=== PATIENT | female | born 1970 | race Caucasian/White ===

== ENCOUNTER 2017-11-17 16:05 | Emergency (ER) | payer OTHER ==
[~2017-11-17] VITALS: Ht 157.5 cm; Wt 65.5 kg
[~2017-11-17 16:05] MED LIST: B-1250TA PO; CELE20TA PO; FERR1TAB36 PO; HYDR-3288 PO; IMIT100T PO; TOPI1CAP25 PO; WELL150T PO
[2017-11-17 16:09] VITALS: BP 134/96; PULSE 86; RESP 16; TEMP 98.4; O2SAT 99
[2017-11-17] MEDS ORDERED: VITA1000 PO (16:28)
[2017-11-17] MEDS ORDERED: FERR325T18 PO (16:28)
[2017-11-17] MEDS ORDERED: MULT-65 PO (16:28)
[2017-11-17] MEDS ORDERED: BUPR150CR PO (16:28)
[2017-11-17] MEDS ORDERED: FURO1TAB62 PO (16:28)
--- NOTE | 2017-11-17 16:51 | PD ---
HPI Chief Complaint: Abdominal Pain Time Seen by Provider: 16:31 Travel History International Travel<30 days: No Contact w/Intl Traveler<30days: No Traveled to known affect area: No History of Present Illness HPI 46-year-old female presents emergency department for evaluation of abdominal pain that started . 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 The patient attempted to sit down prior to being to the chair in the nurse attempted to keep the patient standing by tightening all of her muscles. At that time she felt a sharp stinging pain in the upper right lateral aspect of her abdomen. Patient reports that the pain was quick and then changed into a pressure sensation. Patient has had the pressure in the right lateral upper abdominal region since. Patient reports the pain is achy in sensation and constant, rating it at as a 6 out of 10. Patient reports pain relief when she holds her abdomen and increased pain with movement and activity. Patient reported to work today and was holding her stomach because it helps relieve the pain when coworkers referred her to the emergency department for evaluation after they felt a pulsating mass. Patient's major medical history is migraines, gastric bypass in 2007, GI bleed in 2006 from over naproxen use. Patient's daily medication is Wellbutrin, Lasix and phentermine. She denies any nausea vomiting or diarrhea associated with this pain. Patient denies any fever, chills, dysuria, hematuria, blood in her stool. PFSH Past Medical History Depression: Yes Deep Vein Thrombosis: Yes (left leg) Gastrointestinal Disorders: Yes (GI bleed repaired with stapling) Migraines: Yes Influenza Vaccination: Yes ?: Not : 1 Miscarriage: 1 Past Surgical History Abdominal Surgery: Yes (GASTRIC BYPASS) Tonsillectomy: Yes Other Surgery: Yes (left medial miniscus repair) Family History Family Myocardial Infarction: Yes (maternal ) Social History Alcohol Use: No (rarely) Tobacco Use: No Substance Use: No Allergies-Medications (Allergen,Severity, Reaction): Coded Allergies: droperidol (Unverified Allergy, Severe, 11/17/17) Reported Meds & Prescriptions Reported Meds & Active Scripts Active Robaxin (Methocarbamol) 500 Mg Tab 500 Mg PO TID Reported Multi-Vitamin Daily (Multiple Vitamin) 1 Tab Tab 1 Tab PO DAILY Vitamin D-1000 (Cholecalciferol) 1,000 Unit Tab 1,000 Units PO DAILY Lasix (Furosemide) 20 Mg Tab 10 Mg PO DAILY Ferrous Sulfate 325 Mg (65 Mg Iron) Tablet 325 Mg PO DAILY Wellbutrin SR 12 HR (Bupropion HCl) 150 Mg Tab 150 Mg PO Q12HR B-1 (Thiamine HCl) 250 Mg Tab 250 Mg PO DAILY Imitrex (Sumatriptan Succinate) 100 Mg Tab 100 Mg PO ONCE PRN If a satisfactory response has not been obtained at 2 hours, a second dose may be administered Deputy (Hydrocodone-Acetaminophen) 7.5-325 mg Tab 1 Tab PO Q4H PRN Trokendi Xr (Topiramate) 25 Mg Cap 25 Mg PO DAILY Physical Exam Narrative GENERAL: Well-nourished, well-developed 46-year-old female in no acute distress. Nontoxic appearing. SKIN: Focused skin assessment warm/dry. HEAD: Atraumatic. Normocephalic. EYES: Pupils equal and round. No scleral icterus. No injection or drainage. ENT: No nasal bleeding or discharge. Mucous membranes pink and moist. NECK: Trachea midline. No JVD. CARDIOVASCULAR: Regular rate and rhythm. No murmur appreciated. RESPIRATORY: No accessory muscle use. Clear to auscultation. Breath sounds equal bilaterally. GASTROINTESTINAL: Abdomen soft, non-tender, nondistended. Hepatic and splenic margins not palpable. Right upper quadrant pulsating mass palpated. MUSCULOSKELETAL: No obvious deformities. No clubbing. No cyanosis. No edema. NEUROLOGICAL: Awake and alert. No obvious cranial nerve deficits. Motor grossly within normal limits. Normal speech. PSYCHIATRIC: Appropriate mood and affect; insight and judgment normal. Data Data Last Documented VS Vital Signs Date Time Temp Pulse Resp B/P (MAP) Pulse Ox O2 Delivery O2 Flow Rate FiO2 11/17/17 21:07 11/17/17 19:09 98.7 73 16 100 Room Air Orders Orders Complete Blood Count With Diff (11/17/17 16:42) Comprehensive Metabolic Panel (11/17/17 16:42) Lipase (11/17/17 16:42) Prothrombin Time / Inr (Pt) (11/17/17 16:42) Act Partial Throm Time (Ptt) (11/17/17 16:42) Cta Thor Abd Aorta W Iv C W3d (12/23/17 ) Iv Access Insert/Monitor (11/17/17 16:42) Ecg Monitoring (11/17/17 16:42) Oximetry (11/17/17 16:42) Electrocardiogram (11/17/17 16:42) Iohexol 350 Inj (Omnipaque 350 Inj) (11/17/17 20:00) Ed Discharge Order (11/17/17 20:52) Labs Laboratory Tests Test 11/17/17 16:54 White Blood Count 5.0 TH/MM3 Red Blood Count 4.32 MIL/MM3 Hemoglobin 12.9 GM/DL Hematocrit 37.3 % Mean Corpuscular Volume 86.2 FL Mean Corpuscular Hemoglobin 29.9 PG Mean Corpuscular Hemoglobin Concent 34.7 % Red Cell Distribution Width 12.6 % Platelet Count 231 TH/MM3 Mean Platelet Volume 8.2 FL Neutrophils (%) (Auto) 53.3 % Lymphocytes (%) (Auto) 35.1 % Monocytes (%) (Auto) 9.5 % Eosinophils (%) (Auto) 1.4 % Basophils (%) (Auto) 0.7 % Neutrophils # (Auto) 2.7 TH/MM3 Lymphocytes # (Auto) 1.8 TH/MM3 Monocytes # (Auto) 0.5 TH/MM3 Eosinophils # (Auto) 0.1 TH/MM3 Basophils # (Auto) 0.0 TH/MM3 CBC Comment DIFF FINAL Differential Comment Prothrombin Time 10.7 SEC Prothromb Time International Ratio 1.1 RATIO Activated Partial Thromboplast Time 24.3 SEC Blood Urea Nitrogen 12 MG/DL Creatinine 0.89 MG/DL Random Glucose 90 MG/DL Total Protein 6.8 GM/DL Albumin 4.3 GM/DL Calcium Level 9.1 MG/DL Alkaline Phosphatase 45 U/L Aspartate Amino Transf (AST/SGOT) 13 U/L Alanine Aminotransferase (ALT/SGPT) 20 U/L Total Bilirubin 0.7 MG/DL Sodium Level 139 MEQ/L Potassium Level 3.5 MEQ/L Chloride Level 104 MEQ/L Carbon Dioxide Level 27.9 MEQ/L Anion Gap 7 MEQ/L Estimat Glomerular Filtration Rate 68 ML/MIN Lipase 83 U/L [facility] Medical Decision Making Medical Screen Exam Complete: Yes Emergency Medical Condition: Yes Differential Diagnosis Differential diagnoses include but are not limited to AAA, muscle strain, cholecystitis, pancreatitis, hepatic lesion, abdominal pain Narrative Course Patient was on monitor, IV obtained, blood works in the lab. CBC, CMP, lipase, PT INR ordered and pending. EKG ordered and interpreted. CTA abdomen thoracic and aorta with contrast ordered and pending. CBC shows no acute abnormality. CMP shows no acute abnormality. PT/INR shows no acute abnormality. EKG shows sinus rhythm with heart rate 76. CTA of the thoracic/aorta shows no acute findings in the abdomen and pelvis, no evidence of aneurysm, dissection or high-grade stenosis. Small gallbladder stone noted. Postsurgical findings of the stomach and oxygen will small bowel. Patient is status post gastric bypass. Based on patient's presentation, vital signs, EKG, history my suspicion for acute coronary event is exceedingly low. Pain correlated with activity with AAA excluded the pain is consistent with muscular strain. Patient will be discharged home with instructions to follow-up with her primary care return the emergency Department with any worsening condition. Patient will be given a work note for tomorrow so she can rest. Patient instructed to return the emergency Department with any worsening condition. Patient understands reasons to return to the ED prior to discharge. Last Impressions Aorta CTA 11/17/17 0000 Signed Impressions: Service Date/Time: Sunday, November 17, 2017 19:23 - CONCLUSION: 1. No acute findings in the abdomen and pelvis. No evidence of aneurysm, dissection or high-grade stenosis. 2. Small gallstone in the gallbladder. 3. Postsurgical findings in the stomach and proximal small bowel. Robi Livingston MD Diagnosis Primary Impression: Muscle strain Referrals: Primary Care Physician Patient Instructions: General Instructions, Muscle Strain (ED) Departure Forms: Tests/Procedures, Work Release Enter return to work date: Nov 20, 2017 Additional Instructions: Please return to emergency department if your symptoms return or worsen. Follow up with your primary care provider. May use heating pads to help with pain management. May take Tylenol for pain management. Med/Other Pt SpecificInfo: Prescription(s) given Scripts Methocarbamol (Robaxin) 500 Mg Tab 500 MG PO TID for Muscle Spasm, #10 TAB 0 Refills Prov: Zofia Enamorado Dary CORONA 11/17/17 Disposition: 01 DISCHARGE HOME Condition: Stable Zofia Enamorado Dary CORONA Nov 17, 2017 16:51
[2017-11-17 17:06] LABS: AUTOMATED NEUTROPHIL # 2.7 TH/MM3 (1.8-7.7); BASOPHIL % 0.7 % (0.0-2.0); EOSINOPHIL # 0.1 TH/MM3 (0-0.4); EOSINOPHIL % 1.4 % (0.0-4.0); HEMATOCRIT 37.3 % (35.0-46.0); HEMOGLOBIN 12.9 GM/DL (11.6-15.3); LYMPH % 35.1 % (9.0-44.0); LYMPHOCYTE # 1.8 TH/MM3 (1.0-4.8); MEAN CELL VOLUME 86.2 FL (80.0-100.0); MEAN CORPUSCULAR HEMOGLOBIN 29.9 PG (27.0-34.0); MEAN CORPUSCULAR HGB CONC 34.7 % (32.0-36.0); MEAN PLATELET VOLUME 8.2 FL (7.0-11.0); MONO % 9.5 % (0.0-8.0); MONOCYTE # 0.5 TH/MM3 (0-0.9); NEUT % 53.3 % (16.0-70.0); PLATELET COUNT 231 TH/MM3 (150-450); RED BLOOD COUNT 4.32 MIL/MM3 (4.00-5.30); RED CELL DISTRIBUTION WIDTH 12.6 % (11.6-17.2)
--- NOTE | 2017-11-17 17:24 | PD ---
Data Data Last Documented VS Vital Signs Date Time Temp Pulse Resp B/P (MAP) Pulse Ox O2 Delivery O2 Flow Rate FiO2 11/17/17 21:07 11/17/17 19:09 98.7 73 16 100 Room Air Orders Orders Complete Blood Count With Diff (11/17/17 16:42) Comprehensive Metabolic Panel (11/17/17 16:42) Lipase (11/17/17 16:42) Prothrombin Time / Inr (Pt) (11/17/17 16:42) Act Partial Throm Time (Ptt) (11/17/17 16:42) Cta Thor Abd Aorta W Iv C W3d (11/17/17 ) Iv Access Insert/Monitor (11/17/17 16:42) Ecg Monitoring (11/17/17 16:42) Oximetry (11/17/17 16:42) Electrocardiogram (11/17/17 16:42) Iohexol 350 Inj (Omnipaque 350 Inj) (11/17/17 20:00) Ed Discharge Order (11/17/17 20:52) Labs Laboratory Tests Test 11/17/17 16:54 White Blood Count 5.0 TH/MM3 Red Blood Count 4.32 MIL/MM3 Hemoglobin 12.9 GM/DL Hematocrit 37.3 % Mean Corpuscular Volume 86.2 FL Mean Corpuscular Hemoglobin 29.9 PG Mean Corpuscular Hemoglobin Concent 34.7 % Red Cell Distribution Width 12.6 % Platelet Count 231 TH/MM3 Mean Platelet Volume 8.2 FL Neutrophils (%) (Auto) 53.3 % Lymphocytes (%) (Auto) 35.1 % Monocytes (%) (Auto) 9.5 % Eosinophils (%) (Auto) 1.4 % Basophils (%) (Auto) 0.7 % Neutrophils # (Auto) 2.7 TH/MM3 Lymphocytes # (Auto) 1.8 TH/MM3 Monocytes # (Auto) 0.5 TH/MM3 Eosinophils # (Auto) 0.1 TH/MM3 Basophils # (Auto) 0.0 TH/MM3 CBC Comment DIFF FINAL Differential Comment Prothrombin Time 10.7 SEC Prothromb Time International Ratio 1.1 RATIO Activated Partial Thromboplast Time 24.3 SEC Blood Urea Nitrogen 12 MG/DL Creatinine 0.89 MG/DL Random Glucose 90 MG/DL Total Protein 6.8 GM/DL Albumin 4.3 GM/DL Calcium Level 9.1 MG/DL Alkaline Phosphatase 45 U/L Aspartate Amino Transf (AST/SGOT) 13 U/L Alanine Aminotransferase (ALT/SGPT) 20 U/L Total Bilirubin 0.7 MG/DL Sodium Level 139 MEQ/L Potassium Level 3.5 MEQ/L Chloride Level 104 MEQ/L Carbon Dioxide Level 27.9 MEQ/L Anion Gap 7 MEQ/L Estimat Glomerular Filtration Rate 68 ML/MIN Lipase 83 U/L MDM Supervised Visit with KALEIGH: Yes Narrative Course I, Dr. Torres, have reviewed the advance practice practitioner's documentation and am in agreement, met with the patient face to face, made the diagnosis, and the medical decision making was done by me. *My assessment and Findings: Patient seen and examined by me in addition to Zofia Enamorado. Patient fairly benign abdominal exam but is tender over her aorta, think she needs exclusion of aortic pathology and CAT scans been ordered. Think her symptoms are much more likely musculoskeletal however Last 24 hours Impressions Aorta CTA 11/17/17 0000 Signed Impressions: Service Date/Time: Sunday, November 17, 2017 19:23 - CONCLUSION: 1. No acute findings in the abdomen and pelvis. No evidence of aneurysm, dissection or high-grade stenosis. 2. Small gallstone in the gallbladder. 3. Postsurgical findings in the stomach and proximal small bowel. Robi Livingston MD Scripts Methocarbamol (Robaxin) 500 Mg Tab 500 MG PO TID for Muscle Spasm, #10 TAB 0 Refills Prov: Zofia Enamorado 11/17/17 Zenon Torres MD Nov 17, 2017 17:24
[2017-11-17 17:26] LABS: ALBUMIN 4.3 GM/DL (3.4-5.0); ALT (GPT) 20 U/L (10-53); AST (GOT) 13 U/L (15-37); BICARBONATE 27.9 MEQ/L (21.0-32.0); BLOOD UREA NITROGEN 12 MG/DL (7-18); CALCIUM 9.1 MG/DL (8.5-10.1); CHLORIDE 104 MEQ/L (98-107); CREATININE 0.89 MG/DL (0.50-1.00); GLOMERULAR FILTRATION RATE 68 ML/MIN (>89); GLUCOSE,RANDOM 90 MG/DL (74-106); LIPASE 83 U/L (73-393); SODIUM (NA) 139 MEQ/L (136-145)
[2017-11-17 17:30] LABS: ALKALINE PHOSPHATASE 45 U/L (45-117); TOTAL BILIRUBIN ADULT 0.7 MG/DL (0.2-1.0); TOTAL PROTEIN 6.8 GM/DL (6.4-8.2)
[2017-11-17 17:33] LABS: INTERNATIONAL NORMALIZED RATIO 1.1 RATIO; PROTHROMBIN TIME - PATIENT 10.7 SEC (9.8-11.6)
[2017-11-17 19:09] VITALS: BP 128/74; PULSE 73; RESP 16; TEMP 98.7; O2SAT 100
[2017-11-17] MEDS ORDERED: IOHEXOL 350 MG/ML 10 ML VIAL (for RAD DIAG) IVCONTRAST ONE (20:00)
--- NOTE | 2017-11-17 20:32 | RADRPT ---
EXAM DATE/TIME: 11/17/2017 19:23 [facility] COMPARISON: No previous studies available for comparison. INDICATIONS : Epigastric abdomen pain for three days. IV CONTRAST: 90 cc Omnipaque 350 (iohexol) IV RADIATION DOSE: 4.83 CTDIvol (mGy) MEDICAL HISTORY : deep vein thrombosis SURGICAL HISTORY : Gastric bypass. ENCOUNTER: Initial ACUITY: 3 days PAIN SCALE: 4/10 LOCATION: epigastric abdomen TECHNIQUE: Volumetric scanning was performed using a multi-row detector CT scanner. The data was post processed with a variety of visualization algorithms including full volume maximum intensity projection, multi -planar sliding thin slab reformation, curved planar reformation, and surface rendering techniques. Using automated exposure control and adjustment of the mA and/or kV according to patient size, radiat ion dose was kept as low as reasonably achievable to obtain optimal diagnostic quality images. DICOM format image data is available electronically for review and comparison. FINDINGS: LUNGS: There is no consolidation or pneumothorax. No concerning pulmonary nodule is visualized. No pleural fluid is present. MEDIASTINUM: No abnormally enlarged lymph nodes by CT criteria. No axillary or hilar abnormalities are identified. ABDOMEN: Small gallstones in gallbladder. No pericholecystic inflammatory changes. Liver, spleen, pancreas, an d adrenal glands within normal limits. Curvilinear calcification of the posterior capsule of the left kidney suggesting dystrophic change or prior surgery. 1.7 cm right renal cyst. The kidneys are other wright within normal limits. No evidence of hydronephrosis. Post surgical findings of the stomach and p roximal small bowel. No evidence of bowel dilatation. No free air or free fluid. Scattered colonic di verticula. No evidence of acute diverticulitis. Appendix within normal limits. PELVIS: No evidence of free fluid or pelvic mass. No abnormally enlarged inguinal or retroperitoneal lymph no aretha are present. The bladder is unremarkable. THORACIC AORTA: The thoracic aortic root is normal with normal branching of the great vessels. There is no evidence of aneurysm or dissection. ABDOMINAL AORTA: The aorta is normal in caliber without aneurysm or dissection. The renal arteries are patent bilater ally. The proximal celiac and superior mesenteric arteries are patent and normal in diameter. PELVIC VESSELS: The internal iliac and external iliac vessels are patent without aneurysm or stenosis. CONCLUSION: 1. No acute findings in the abdomen and pelvis. No evidence of aneurysm, dissection or high-grade anthony nosis. 2. Small gallstone in the gallbladder. 3. Postsurgical findings in the stomach and proximal small bowel. Robi Livingston MD on November 17, 2017 at 20:24 Board Certified Radiologist. This report was verified electronically.
[2017-11-17] MEDS ORDERED: ROBA500T PO (20:59)
--- NOTE | 2017-11-19 09:07 | EKG ---
Date Performed: 11/17/2017 Time Performed: 17:05:02 PTAGE: 46 years EKG: Sinus rhythm NORMAL ECG NO PREVIOUS TRACING DOCTOR: Irma Gómez Interpretating Date/Time 11/19/2017 09:07:07
== END 2017-11-17 21:08 | disposition home or self-care (01) ==
LOC: NEPC 16:05
DX: S39.011A Strain of muscle, fascia and tendon of abdomen, initial encounter (principal); X50.0XXA Overexertion from strenuous movement or load, initial encounter; Y93.F9 Activity, other caregiving; Y92.230 Patient room in hospital as the place of occurrence of the external cause; Y99.0 Civilian activity done for income or pay
CPT/HCPCS: 71275; 74174; 80053; 83690; 85025; 85610; 85730; 93005; 99284; Q9967